=== PATIENT | female | born 1955 | race Caucasian/White ===

== ENCOUNTER 2017-11-30 15:19 | Outpatient (CLI) | payer BC ==
--- NOTE | 2017-11-30 15:53 | RAD ---
RIGHT HIP THREE VIEWS: History: Right hip pain. FINDINGS/IMPRESSION: Mild degenerative change is present. No fracture, dislocation, or bony destruction identified. POS: RUBÉN
== END 2017-11-30 15:20 | disposition home or self-care (01) ==
LOC: SCSRAD 15:19
PROVIDERS: ATTEND Family Medicine
DX: M25.551 Pain in right hip (principal)

== ENCOUNTER 2019-01-01 13:30 | Outpatient (CLI) | payer BC ==
--- NOTE | 2019-01-01 15:15 | RAD ---
RIGHT FOOT THREE VIEWS: History: Right foot pain. FINDINGS: Tarsals appear intact. The metatarsal and phalanges are intact. MTP and IP joints unremarkable. IMPRESSION: No acute finding. POS: RUBÉN
== END 2019-01-01 13:31 | disposition home or self-care (01) ==
LOC: SCSRAD 13:30
PROVIDERS: ATTEND Family Medicine
DX: M79.671 Pain in right foot (principal)

== ENCOUNTER 2019-05-30 11:48 | Outpatient (CLI) | payer MEDICARE ==
[2019-05-30 13:04] LABS: #Basophils 0.1 thou/uL (0.0-0.2); #Eosinphils 0.1 thou/uL (0.0-0.7); #Lymphocytes 1.6 thou/uL (1.20-3.40); #Monocytes 0.6 thou/uL (0.11-0.59); #Neutrophils 3.8 thou/uL (1.40-6.50); %Basophils 0.8 % (0.0-1.0); %Lymphocytes 26.7 % (21.0-51.0); %Monocytes 9.6 % (0.0-10.0); %Neutrophils 61.9 % (42.0-75.0); Hemoglobin 12.9 g/dL (12.0-16.0); Mean Corpuscular HGB CONC 31.6 g/dL (32.0-36.0); Mean Corpuscular Hemoglobin 25.7 pg (27.0-31.0); Mean Corpuscular Volume 81.4 fL (78.0-98.0); Mean Platelet Volume 7.9 fL (7.4-10.4); Platelet Count 272 thou/uL (130-400); White Blood Cell (WBC) Count 6.1 thou/uL (4.8-10.8)
[2019-05-30 13:25] LABS: Anion Gap 12 mmol/L (10-20); BUN (Urea Nitrogen) 6 mg/dL (9.8-20.1); Calc. Creatinine Clearance 0 mL/min (70-130); Calcium 9.4 mg/dL (7.8-10.44); Carbon Dioxide 25 mmol/L (23-31); Chloride 105 mmol/L (98-107); Estimated GFR-MDRD 61; Glucose 97 mg/dL (80-115); Potassium 4.1 mmol/L (3.5-5.1); Sodium 138 mmol/L (136-145)
--- NOTE | 2019-06-05 22:35 | EKG ---
Test Reason : Blood Pressure : / mmHG Vent. Rate : 082 BPM Atrial Rate : 082 BPM P-R Int : 150 ms QRS Dur : 086 ms QT Int : 380 ms P-R-T Axes : 071 032 046 degrees QTc Int : 443 ms Normal sinus rhythm Normal ECG When compared with ECG of 08-FEB-2002 18:32, No significant change was found Confirmed by Casey SMALLS ([id number]) on 06/05/2019 10:34:48 PM Referred By: [email or web address] Confirmed By:Casey SMALLS
== END 2019-05-30 11:49 | disposition home or self-care (01) ==
LOC: LABBT 11:48
PROVIDERS: ATTEND Surgery
DX: Z01.818 Encounter for other preprocedural examination (principal); K44.9 Diaphragmatic hernia without obstruction or gangrene; K20.9 Esophagitis, unspecified
CPT/HCPCS: 80048; 85025; 93005; 93010

== ENCOUNTER 2019-06-05 05:38 | Observation (INO) | payer MEDICARE ==
[2019-06-05] MEDS ORDERED: Bupivacaine/Epinephrine 0.25% 30 ML VIAL ONE (06:43)
[2019-06-05] MEDS ORDERED: Fentanyl 250 MCG/5 ML VIAL ONE (06:57)
[2019-06-05] MEDS ORDERED: Midazolam HCl 2 mg/2 ml Vial ONE (07:02)
[2019-06-05] MEDS ORDERED: Scopolamine 1.5 mg/72 hour Patch ONE (07:02)
[2019-06-05] MEDS ORDERED: Ketorolac Tromethamine 30 MG/ML VIAL IVP PRN (07:15)
[2019-06-05] MEDS ORDERED: Promethazine HCl 25 MG/ML VIAL SLOW IVP PRN (07:15)
[2019-06-05] MEDS ORDERED: Levofloxacin 500 mg/D5W 100 ml Premix Bag ONE (07:15)
[2019-06-05] MEDS ORDERED: Promethazine HCl 25 MG/ML VIAL IM PRN ×2 (07:15→09:29)
[2019-06-05] MEDS ORDERED: Ondansetron HCl/PF 4 MG/2 ML Vial IVP PRN (07:15)
[2019-06-05 07:20] LABS: INR-International Normal Ratio 1.2; Prothrombin Time 15.3 SEC (12.0-14.7)
[2019-06-05] MEDS ORDERED: Ondansetron PF 4 MG/2 ML Vial IVP PRN (09:29)
[2019-06-05] MEDS ORDERED: hydrALAZINE 20 MG/ML VIAL SLOW IVP PRN (09:29)
[2019-06-05] MEDS ORDERED: Dextrose 5% in Water 1,000 ML IV PRN (09:29)
[2019-06-05] MEDS ORDERED: Morphine 2 MG/ML SYRINGE SLOW IVP PRN (09:29)
[2019-06-05] MEDS ORDERED: Hydrocodone-Acetamin 15 ML UDCUP PO PRN (09:29)
[2019-06-05] MEDS ORDERED: Dextrose 50% Abboject 50 ML SYRINGE SLOW IVP PRN (09:29)
[2019-06-05] MEDS ORDERED: PROVENTIL INHALER 6.7 G (200 INHALATIONS) INH PRN (09:29)
[2019-06-05] MEDS ORDERED: Morphine 4 MG/ML VIAL SLOW IVP PRN (09:29)
[2019-06-05] MEDS ORDERED: Fentanyl 100 MCG/2 ML VIAL ONE (09:33)
[2019-06-05] MEDS ORDERED: Sodium Chloride 0.9% (PF) 10 ML VIAL FS PRN (11:07)
[2019-06-05] MEDS ORDERED: Pantoprazole 40 MG VIAL IVP SCH (11:15)
--- NOTE | 2019-06-05 11:47 | OP ---
DATE OF PROCEDURE: 06/05/2019 PREOPERATIVE DIAGNOSIS: Severe esophagitis with hiatal hernia, sliding type. POSTOPERATIVE DIAGNOSIS: Severe esophagitis with hiatal hernia, sliding type. PROCEDURE PERFORMED: Laparoscopic Gracie fundoplication and hiatal hernia repair. ANESTHESIA: General. ESTIMATED BLOOD LOSS: Minimal. COMPLICATIONS: None. SPECIMENS: None. FINDINGS: Normal postoperative EGD. DESCRIPTION OF PROCEDURE: The patient was taken to the operating room and laid supine on the operating room table. After general anesthetic was obtained, OG tube was used to decompress the stomach. Arms and legs were double strapped to the bariatric table. The legs were split. The abdomen was prepped and draped in a sterile fashion. Left subcostal 5-mm Optiview trocar was placed in usual fashion and high-flow pneumoperitoneum was obtained. A 5-mm port was placed above the umbilicus, 5 mm ports were placed in the right and left lateral abdomen. A 5-mm port was placed to the right of the xiphoid. The patient was placed in reverse Trendelenburg position. The snake liver retractor was used to raise the liver off the GE junction. The gastrohepatic ligament was opened exposing the right jeana of the diaphragm. The mediastinum was entered. A circumferential dissection of the esophagus was begun. The stomach was flipped over and the short gastrics were taken down in the fundus of the stomach. The left jeana was found. The mediastinum was entered on the left. Circumferential dissection of the esophagus was performed. The GE junction was brought back down into the abdominal cavity. The posterior window at the GE junction was obtained. A 46 bougie was brought in its tip left in the antrum of the stomach. Two sutures of Ethibond with a tie knot system used to close the crural defect posteriorly. A wrap was then created bypassing the fundus posterior to the GE junction bringing it up anteriorly and sewing it to the residual fundus. Care was taken to avoid making sure it was not twisted. Care was taken to avoid making sure it was not too tight. A floppy wrap was performed. The first sutures used to obtain a small amount of the esophageal wall. Two additional sutures were placed to create the wrap. The bougie was removed. EGD scope was passed in the esophagus, stomach to the level of the duodenum without obstruction. There was no significant stenosis at the diaphragmatic hiatus or at the GE junction. EGD scope was used to decompress the stomach. It was pulled and removed. All port sites were infiltrated using local anesthetic. All ports were removed under camera visualization. Pneumoperitoneum was let down. The snake retractor had been removed under direct visualization without injury to the liver. All incisions were irrigated and closed using 4-0 Monocryl and Dermabond. The patient was sent to Recovery in stable condition. All instrument counts, needle counts, and lap counts were correct. Job ID: [id number]
[2019-06-05 12:35] VITALS: BMI 38.0
[2019-06-05] MEDS ORDERED: PHENYLEPHRINE-NS 100 MCG/ML 10 ML SYRINGE ONE (14:00)
[2019-06-05] MEDS ORDERED: Succinylcholine Chloride 20 MG/ML 10 ml SYRINGE FS ONE (14:00)
[2019-06-05] MEDS ORDERED: PROPOFOL 200 MG/20 ML VIAL ONE (14:00)
[2019-06-05] MEDS ORDERED: Glycopyrrolate 0.2 MG/ML 5 ML SYRINGE ONE (14:00)
[2019-06-05] MEDS ORDERED: Rocuronium Bromide 10 MG/ML (10ML VIAL) ONE (14:00)
[2019-06-05] MEDS ORDERED: ePHEDrine 50 MG/ML VIAL ONE (14:00)
[2019-06-05] MEDS ORDERED: Dexamethasone 20 MG/5 ML VIAL ONE (14:00)
[2019-06-05] MEDS ORDERED: Lidocaine 1% PF 5 ML VIAL ONE (14:00)
[2019-06-05] MEDS ORDERED: Ondansetron PF 4 MG/2 ML Vial ONE (14:00)
[2019-06-05] MEDS: Mometasone/Formoterol 120 PUFF INHALER INH SCH (18:37)
[2019-06-05] MEDS: Sodium Chloride 0.9% 1,000 ML IV SCH (18:55)
[2019-06-05] MEDS ORDERED: Enoxaparin Sodium 40 MG/0.4 ML SYRINGE SC SCH (21:00)
[2019-06-06] MEDS: Mometasone/Formoterol 120 PUFF INHALER INH SCH (06:55)
--- NOTE | 2019-06-06 08:09 | PDOC.GSPN ---
Surgery Progress Note: Subj - Subjective Patient reports: positive flatus Narrative: Mrs. Ewa Key is a 64 y/o female post-op day 1 from a gracie fundoplication with hiatal hernia repair. She reports having soreness in her shoulders and upper back. Has minimal but appropriate abdominal pain. Has not had a bowel movement yet, but positive flatus. She is tolerating her liquid diet without any issues. She has been ambulating well. Denies nausea, dysphagia, reflux Surgery Progress Note: Obj - Vital signs Vital signs: Vital Signs - Most Recent Temp Pulse Resp BP Pulse Ox 98 F 80 18 117/70 98 06/06/19 04:44 06/06/19 04:44 06/06/19 04:44 06/06/19 04:44 06/06/19 04:44 - Physical Exam Cardiovascular: regular rate and rhythm (without murmurs, rubs or gallops.) Respiratory: clear to auscultation, normal expansion Abdomen: soft, nondistended, positive bowel sounds, appropriately tender Hernia: none Psychiatric: memory intact, speech is normal Wound: healing well (without drainage. Mild ecchymosis around incision sites.) Surgery Progress Note: A/P - Problem (1) Status post laparoscopic Gracie fundoplication Current Visit: Yes Code(s): Z98.890 - OTHER SPECIFIED POSTPROCEDURAL STATES Status: Acute Assessment and Plan: Assessment: 1. Shoulder and Upper back pain most likely due to carbon dioxide from laparoscopic procedure. 2. Day 1 Post Op for Gracie fundoplication with hiatal hernia repair Plan: - Continue ambulating frequently to help with CO2 absorption - Continue full liquid diet - Possible d/c today per Dr. Hensley
[2019-06-06 08:30] VITALS: BP 113/73; TEMP 98.3
[2019-06-06] MEDS ORDERED: Pantoprazole 40 MG VIAL IVP SCH (09:00)
[2019-06-06] MEDS ORDERED: Prevnar 13-Val Conj/PF 0.5 ML SYRINGE IM ONE (09:00)
[2019-06-06] MEDS ORDERED: Furosemide 20 MG TAB PO SCH (09:00)
[2019-06-06] MEDS ORDERED: Bupropion 150 MG XL TAB PO SCH (09:00)
[2019-06-06] MEDS: Sodium Chloride 0.9% 1,000 ML IV SCH (09:04)
--- NOTE | 2019-06-06 11:16 | DIS ---
DATE OF ADMISSION: 06/05/2019 DATE OF DISCHARGE: 06/06/2019 ADMITTING DIAGNOSES: Hiatal hernia and esophagitis. DISCHARGE DIAGNOSES: Hiatal hernia and esophagitis. PROCEDURE PERFORMED: Laparoscopic Gracie fundoplication with hiatal hernia repair by Dr. Hensley without complication. CONDITION DISCHARGE: Stable. STAFF: Yohan Hensley MD HOSPITAL COURSE: On postop day 1, the patient is doing well. She has no pain. She is ambulatory. She is tolerating a liquid diet without difficulty. She is being discharged home. Prescriptions for Carson and Zofran sent to [facility]. She can resume all of her medications including her Coumadin today. She will follow up with me in 2 weeks. Job ID: [id number]
== END 2019-06-06 13:55 | disposition home or self-care (01) ==
LOC: SDC 05:38 → INTOOBSV 11:07 → SURG B 11:07
PROVIDERS: ADMIT Surgery; ATTEND Surgery
PROC: 0DV44ZZ Restriction of Esophagogastric Junction, Percutaneous Endoscopic Approach (ICD-10-PCS; principal; 2019-06-05)
DX: K44.9 Diaphragmatic hernia without obstruction or gangrene (principal); K21.0 Gastro-esophageal reflux disease with esophagitis; Z79.01 Long term (current) use of anticoagulants; Z79.82 Long term (current) use of aspirin; Z79.899 Other long term (current) drug therapy; Z88.0 Allergy status to penicillin
CPT/HCPCS: 43280; 85610; 94640 ×2; 96372; 96374; 96376; G0378 ×2; C9113; J0131; J1100; J1650; J1956; J2001; J2250; J2405; J2704; J3010; J3490

== ENCOUNTER 2022-05-28 09:36 | Outpatient (CLI) | payer MEDICARE ==
[2022-05-28 14:15] LABS: #Basophils 0.1 thou/uL (0.0-0.2); #Eosinphils 0.1 thou/uL (0.0-0.7); #Monocytes 0.7 thou/uL (0.11-0.59); #Neutrophils 4.1 thou/uL (1.40-6.50); %Basophils 0.9 % (0.0-1.0); %Eosinophils 1.4 % (0.0-10.0); %Lymphocytes 29.4 % (21.0-51.0); %Monocytes 9.3 % (0.0-10.0); Hemoglobin 14.4 g/dL (12.0-16.0); Mean Corpuscular Hemoglobin 30.4 pg (27.0-31.0); Mean Corpuscular Volume 94.8 fL (78.0-98.0); Mean Platelet Volume 7.4 fL (7.4-10.4); Platelet Count 267 thou/uL (130-400); RBC Distribution Width 12.2 % (11.5-14.5); Red Blood Cell (RBC) Count 4.75 mill/uL (4.20-5.40); White Blood Cell (WBC) Count 6.9 thou/uL (4.8-10.8)
[2022-05-28 14:18] LABS: Hemoglobin A1c 5.2 % (4.0-6.0)
[2022-05-28 14:20] LABS: INR-International Normal Ratio 3.7; Prothrombin Time 37.6 sec (12.0-14.7)
[2022-05-28 14:21] LABS: PTT 45.3 sec (22.9-36.1)
[2022-05-28 14:26] LABS: Bilirubin Negative (Negative); Blood, Urine Negative (Negative); Clarity Clear (Clear); Glucose, Urine (Dipstick) Normal (Negative); Ketone, Urine Negative (Negative); Leukocyte Negative Leu/uL (Negative); Nitrite Negative (Negative); Protein, Urine (Dipstick) Negative (Neg-Trace); Specific Gravity, Urine 1.012 (1.002-1.036); Urobilinogen Normal mg/dL (Less than 2); pH, Urine 6.5 (5.0-9.0)
[2022-05-28 14:52] LABS: ALT (SGPT) 22 U/L (8-55); AST (SGOT) 26 U/L (5-34); Albumin 3.9 g/dL (3.4-4.8); Alkaline Phosphatase 98 U/L (40-110); Anion Gap 11 mmol/L (10-20); BUN (Urea Nitrogen) 13 mg/dL (9.8-20.1); Bilirubin, Total 0.4 mg/dL (0.2-1.2); Calc. Creatinine Clearance 0 mL/min (70-130); Calcium 9.5 mg/dL (7.8-10.44); Carbon Dioxide 29 mmol/L (23-31); Cardiac Risk 2.7 (Less than 4.5); Chloride 104 mmol/L (98-107); Cholesterol 207 mg/dl (< 200 Desired); Estimated GFR 70; Globulin 2.9 g/dL (2.4-3.5); Glucose 91 mg/dL (80-115); HDL Cholesterol 78 mg/dL (>60 Neg Risk); LDL Cholesterol, Calculated 114 mg/dL; Potassium 4.1 mmol/L (3.5-5.1); Protein, Total 6.8 g/dL (5.8-8.1); Sodium 140 mmol/L (136-145); Triglycerides 76 mg/dL (Less than 150)
[2022-05-28 15:02] LABS: Free T4 (Free Thyroxine) 0.87 ng/dL (0.70-1.48); Thyroid Stimulating Hormone 3.2459 uIU/mL (0.35-4.94)
[2022-05-28 15:06] LABS: Vitamin D, 25 Hydroxy 41.5 ng/ml (> 30.0)
== END 2022-05-28 09:37 | disposition home or self-care (01) ==
LOC: SCSRAD 09:36
PROVIDERS: ATTEND Family Medicine
DX: Z78.0 Asymptomatic menopausal state (principal); M79.644 Pain in right finger(s); R42 Dizziness and giddiness; F32.9 Major depressive disorder, single episode, unspecified; F41.9 Anxiety disorder, unspecified; E55.9 Vitamin D deficiency, unspecified; I26.99 Other pulmonary embolism without acute cor pulmonale
CPT/HCPCS: 36415; 80053; 80061; 81003; 82306; 83036; 84439; 84443; 85025; 85610; 85730

== ENCOUNTER 2022-07-27 09:01 | Day surgery (SDC) | payer MEDICARE ==
[2022-07-23 14:35] VITALS: BMI 29.2
[2022-07-27] MEDS ORDERED: Neomycin-Polymyxin 1 ML AMP ONE (12:04)
[2022-07-27] MEDS ORDERED: Bacitracin Zinc Ointment 30 gm TUBE ONE (12:04)
[2022-07-27] MEDS ORDERED: Betamet Acet/Betamet Na Ph 30 MG/5 ML VIAL ONE (12:04)
[2022-07-27] MEDS ORDERED: Bupivacaine PF 0.5% 30 ML VIAL ONE (12:04)
[2022-07-27] MEDS ORDERED: Vancomycin 1 GM/200 ML BAG ONE (12:31)
[2022-07-27] MEDS ORDERED: fentaNYL Citrate/PF 100 MCG/2 ML SYRINGE ONE (12:38)
[2022-07-27] MEDS ORDERED: PROPOFOL 200 MG/20 ML VIAL ONE (12:46)
[2022-07-27] MEDS ORDERED: Ketorolac Tromethamine 30 MG/ML VIAL ONE ×2 (12:46→14:03)
[2022-07-27] MEDS ORDERED: ePHEDrine 50 MG/ML VIAL ONE (12:46)
[2022-07-27] MEDS ORDERED: Dexamethasone 20 MG/5 ML VIAL ONE (12:46)
[2022-07-27] MEDS ORDERED: Ondansetron PF 4 MG/2 ML Vial ONE (12:46)
== END 2022-07-27 15:32 | disposition home or self-care (01) ==
LOC: SDC 09:01
PROVIDERS: ATTEND Orthopaedic Surgery Hand Surgery
PROC: 0LB70ZZ Excision of Right Hand Tendon, Open Approach (ICD-10-PCS; principal; 2022-07-27)
PROC: 0PT Upper Bones, Resection (ICD-10-PCS; 2022-07-27)
DX: M67.441 Ganglion, right hand (principal); M25.741 Osteophyte, right hand; K21.9 Gastro-esophageal reflux disease without esophagitis; J96.90 Respiratory failure, unspecified, unspecified whether with hypoxia or hypercapnia; I87.2 Venous insufficiency (chronic) (peripheral); E55.9 Vitamin D deficiency, unspecified; F41.9 Anxiety disorder, unspecified; F32.A Depression, unspecified; K44.9 Diaphragmatic hernia without obstruction or gangrene; J45.909 Unspecified asthma, uncomplicated; Z86.718 Personal history of other venous thrombosis and embolism; Z86.711 Personal history of pulmonary embolism; Z79.82 Long term (current) use of aspirin; Z79.899 Other long term (current) drug therapy; Z88.0 Allergy status to penicillin; Z88.8 Allergy status to other drugs, medicaments and biological substances; Z90.710 Acquired absence of both cervix and uterus; Z98.890 Other specified postprocedural states
CPT/HCPCS: 88304; J0702; J1100; J1885; J2405; J2704; J3370; J3490; S0020